=== PATIENT | female | born 1955 | race Caucasian/White ===

== ENCOUNTER → 2017-02-20 | Outpatient (CLI) | payer OTHER | LOC: FIMAGING 14:47 | PROVIDERS: ATTEND Family Medicine | DX: Z13.820 Encounter for screening for osteoporosis (principal); R29.890 Loss of height; E03.9 Hypothyroidism, unspecified; I10 Essential (primary) hypertension; J44.9 Chronic obstructive pulmonary disease, unspecified; Z79.899 Other long term (current) drug therapy ==

== ENCOUNTER → 2017-06-15 | Outpatient (CLI) | payer OTHER | LOC: CIMAGING 14:43 | PROVIDERS: ATTEND Family Medicine | DX: Z12.31 Encounter for screening mammogram for malignant neoplasm of breast (principal) | CPT/HCPCS: G0202 ==

== ENCOUNTER → 2017-07-10 | Outpatient (CLI) | payer OTHER | LOC: CIMAGING 17:53 → EDSTATUS 08-12 11:41 | PROVIDERS: ATTEND Family Medicine | DX: J40 Bronchitis, not specified as acute or chronic (principal) | CPT/HCPCS: 71020-PO ==

== ENCOUNTER → 2018-03-04 | Outpatient (CLI) | payer OTHER ==
[~2018-03-04] MED LIST: IOPAMIDOL (ISOVUE-300) 100 ML BTL ONE
== END ==
LOC: FIMAGING 14:18
PROVIDERS: ATTEND Surgery
DX: K57.32 Diverticulitis of large intestine without perforation or abscess without bleeding (principal); M51.37 Other intervertebral disc degeneration, lumbosacral region
CPT/HCPCS: 74177; Q9967; 82565-PO

== ENCOUNTER 2018-04-01 09:43 | Observation (INO) | payer OTHER ==
--- NOTE | 2018-03-29 14:42 | CPEKG ---
Heart Rate: 74 RR Interval: 811 P-R Interval: 180 QRSD Interval: 76 QT Interval: 368 QTC Interval: 409 P [place]: 19 QRS [place]: 26 T Wave [place]: 48 EKG Severity - NORMAL ECG - EKG Impression: SINUS RHYTHM Electronically Signed By: Yary Silva 29-Mar-2018 17:10:46
[~2018-04-01 09:43] MED LIST changes: -IOPAMIDOL (ISOVUE-300) 100 ML BTL ONE; +cefOXitin SODIUM 2 GM in NS 100 ML IV ONE
[2018-04-01] MEDS ORDERED: BUPIVACAINE/EPI 0.5% 30 ML SDV ONE (09:44)
[2018-04-01] MEDS ORDERED: HYDROGEN PEROXIDE 236 ML BOTTLE TP ONE (09:44)
[2018-04-01] MEDS ORDERED: METHYLENE BLUE 0.5% 50 MG/10 ML AMP ONE (09:44)
[2018-04-01] MEDS ORDERED: LR 1,000 ML IV ONE (10:10)
[2018-04-01] MEDS ORDERED: LIDOCAINE 1% 2 ML INJ ID PRN (10:30)
--- NOTE | 2018-04-01 10:45 | PDANEPAE ---
ANE History of Present Illness 62 year old female w/ PMHx of HTN, CVA (2003; s/p Left CEA), hypothyroidism & GERD presents for EUA / Hemorrhoidectomy. ANE Past Medical History - Cardiovascular History Hx Hypertension: Yes Hx Arrhythmias: No Hx Chest Pain: No Hx Coronary Artery / Peripheral Vascular Disease: No Hx CHF / Valvular Disease: No Hx Palpitations: No Cardiovascular History Comment: L CEA 17 yrs ago - Pulmonary History Hx COPD: Yes Hx Asthma/Reactive Airway Disease: No Hx Recent Upper Respiratory Infection: No Hx Oxygen in Use at Home: No Hx Sleep Apnea: No Sleep Apnea Screening Result - Last Documented: Positive - Neurologic History Hx Cerebrovascular Accident: Yes Hx Seizures: No Hx Dementia: No Neurologic History Comment: CVA 2003 - Endocrine History Hx Diabetes: No Endocrine History Comment: HYPOTHYROID - Renal History Hx Renal Disorders: No - Liver History Hx Hepatic Disorders: No Hepatic History Comment: CHOLECYSTECTOMY - Neurological & Psychiatric Hx Hx Neurological and Psychiatric Disorders: No - Cancer History Hx Cancer: No - Congenital Disorder History Hx Congenital Disorders: No - GI History Hx Gastrointestinal Disorders: Yes Gastrointestinal History Comment: GERD - Other Health History Other Health History: POSS ECZEMA knuckles HANDS. dentures upper and lower - Chronic Pain History Chronic Pain: Yes (severe lower back issues an right knee) - Surgical History Prior Surgeries: R KNEE X2. L KNEE. CEA L. CERVICAL DISC SURG. LUMBAR SPINE X2. HYSTERECTOMY. L FOOT. CHOLECYSTECTOMY. CARPAL TUNNEL L ANE Review of Systems Review of Systems: - Exercise capacity Exercise capacity: <4 METS METS (RN): 3 METS ANE Patient History - Allergies Allergies/Adverse Reactions: morphine [Morphine] Allergy (Severe, Verified 03/26/18 12:56) Other-Enter Comments - Home Medications Home medications: home medication list seen and reviewed Home Medications: Carisoprodol [Soma (*)] 11/05/09 [Last Taken 03/30/18] Levothyroxine [Synthroid 150 mcg (*)] 11/05/09 [Last Taken 04/01/18 06:00] buPROPion XL [Wellbutrin 150mg XL] 11/05/09 [Last Taken 03/31/18 06:00] Omeprazole [Prilosec 20 mg] 05/22/14 [Last Taken 04/01/18 06:00] Atorvastatin Calcium [Lipitor 20 mg (*)] 02/28/15 [Last Taken 03/31/18] Albuterol [Proventil Inhaler HFA (*)] 05/30/16 [Last Taken 3 Days Ago ~03/29/18 ] Cholecalciferol Vit D3 [Vitamin D3 (*)] 05/30/16 [Last Taken 1 Week Ago ~] Herbals/Supplements -Info Only 05/30/16 [Last Taken 1 Week Ago ~03/25/18] Losartan Potassium [Cozaar 50 mg (*)] 05/30/16 [Last Taken 03/31/18] Metoprolol Succinate Xr [Toprol Xl 50 mg (*)] 05/30/16 [Last Taken 03/31/18] Estradiol [Estradiol 1 MG (*)] 06/06/16 [Last Taken 04/01/18 06:00] Hydrochlorothiazide [HCTZ (*)] 03/26/18 [Last Taken 03/31/18] Ipratropium/Albuterol [Duoneb (*)] 03/26/18 [Last Taken 3 Days Ago ~03/29/18] Naproxen Sodium [Aleve] 220 mg PO 04/01/18 [Last Taken 2 Weeks Ago ~03/18/18] - NPO status NPO Status: no food or drink >8 hours NPO Since - Liquids (Date): 04/01/18 NPO Since - Liquids (Time): 07:30 NPO Since - Solids (Date): 03/31/18 NPO Since - Solids (Time): 19:30 - Anes Hx Anes Hx: no prior problems - Smoking Hx Smoking Status: Former smoker Marijuana use: No - Alcohol Use Alcohol Use: None - Family Anes Hx Family Anes Hx: neg - N/A Family Hx Anesthesia Complications: none ANE Labs/Vital Signs - Labs Result Diagrams: 03/29/18 14:14 - Vital Signs Vital Signs: reviewed preoperatively; see RN documention for details Blood Pressure: 141/88 Heart Rate: 101 Respiratory Rate: 16 O2 Sat (%): 89 Height: 162.56 cm Weight: 105.233 kg ANE Physical Exam - Airway Neck exam: FROM Mallampati Score: Class 3 Mouth exam: dentures - Pulmonary Pulmonary: no respiratory distress - Cardiovascular Cardiovascular: regular rate and rhythym - ASA Status ASA Status: III ANE Anesthesia Plan Anesthesia Plan: GA w LMA Total IV Anesthesia: No
--- NOTE | 2018-04-01 11:10 | PDHPUP ---
History & Physical Update H&P update statement: This history and physical update is based on an assessment of the patient which was completed after admission or registration (within 24 hours), but prior to the surgery/procedure. H&P update: H&P reviewed & patient examined, no change in patient's condition since H&P completed
[2018-04-01] MEDS ORDERED: MIDAZOLAM 2 MG/2 ML VIAL IVP ONE (11:11)
[2018-04-01] MEDS ORDERED: PROPOFOL/EMULSION 500 MG/50 ML BOTTLE IV ONE (11:25)
[2018-04-01] MEDS ORDERED: LIDOCAINE 2% 5 ML SDV ONE (11:26)
[2018-04-01] MEDS ORDERED: fentaNYL 100 MCG/2 ML INJ ONE ×5 (11:26→14:59)
[2018-04-01] MEDS ORDERED: ONDANSETRON 4 MG/2 ML VIAL IVP PRN (12:02)
[2018-04-01] MEDS ORDERED: NALOXONE HCL 0.4 MG/ML INJ IVP PRN ×2 (12:02→13:41)
[2018-04-01] MEDS ORDERED: LR 500 ML IV PRN (12:02)
[2018-04-01] MEDS ORDERED: ACETAMINOPHEN 500 MG TAB PO PRN (12:02)
[2018-04-01] MEDS ORDERED: LABETALOL HCL 5 MG/ML 20 ML MDV IVP PRN (12:02)
[2018-04-01] MEDS: fentaNYL 100 MCG/2 ML INJ IVP PRN ×6 (12:45→15:00)
[2018-04-01] MEDS ORDERED: ACETAMINOPHEN 500 MG TAB ONE (13:09)
[2018-04-01] MEDS ORDERED: oxyCODONE IR 5 MG TAB PO PRN (13:40)
[2018-04-01] MEDS ORDERED: ALBUTEROL 3 ML DEYVIAL IH PRN (13:40)
[2018-04-01] MEDS ORDERED: oxyCODONE IR 5 MG TAB ONE (13:43)
[2018-04-01] MEDS ORDERED: ALBUTEROL 3 ML DEYVIAL ONE (13:44)
[2018-04-01] MEDS ORDERED: ACETAMINOPHEN 325 MG TAB PO PRN (14:28)
[2018-04-01] MEDS ORDERED: ONDANSETRON DISINTEGRATING 4 MG TAB PO PRN (14:31)
[2018-04-01] MEDS: oxyCODONE IR 5 MG TAB PO PRN ×2 (16:26→20:42)
[2018-04-01] MEDS: KETOROLAC 15 MG/1 ML SDV IVP SCH (17:45)
[2018-04-01] MEDS: DOCUSATE SODIUM 100 MG CAP PO SCH (20:42)
[2018-04-02] MEDS: oxyCODONE IR 5 MG TAB PO PRN ×3 (00:23→11:27)
[2018-04-02] MEDS: KETOROLAC 15 MG/1 ML SDV IVP SCH ×2 (02:09→07:07)
[2018-04-02] MEDS ORDERED: CARISOPRODOL 350 MG TAB PO PRN (07:37)
[2018-04-02] MEDS ORDERED: ALBUTEROL 60 PUFFS/8 GM MDI IH PRN (07:37)
[2018-04-02] MEDS ORDERED: LEVOTHYROXINE 175 MCG TAB PO SCH (07:45)
[2018-04-02 08:07] VITALS: BP 101/62
[2018-04-02] MEDS: DOCUSATE SODIUM 100 MG CAP PO SCH (08:10)
[2018-04-02] MEDS ORDERED: diphenhydrAMINE 25 MG CAP PO PRN (08:18)
--- NOTE | 2018-04-02 08:18 | SOAPPROG ---
SOAP Progress Note Assessment/Plan: Assessment: 62 y/o F s/p hemorrhoidectomy POD #1 S: Pain well controlled. Biggest complaint is itchiness on neck, back and chest. Has history of morphine allergy, but has had oxycodone in the past without issue. Also has had toradol with no reaction. O: Alert Afebrile RRR No increased WOB Abdomen soft nontender Skin: mild redness on neck, otherwise no rash Plan: Dispo home today. Will order benadryl for itchiness. Continue to keep stools soft with high fiber diet and stool softeners. 04/02/18 08:14 Objective: Vital Signs Temp Pulse Resp BP Pulse Ox 37.1 C 78 16 101/62 93 04/02/18 08:00 04/02/18 08:09 04/02/18 08:00 04/02/18 08:10 04/02/18 08:00 Laboratory Results 03/29/18 14:14 04/01/18 04/02/18 04/03/18 05:59 05:59 05:59 Intake Total 4450 Output Total 500 Balance 3950 ICD10 Worksheet Patient Problems: Problems Problem Status Onset C. difficile diarrhea Acute 06/12/16 Total knee replacement status Acute
[2018-04-02] MEDS ORDERED: LOSARTAN POTASSIUM 50 MG TAB PO SCH (09:00)
[2018-04-02] MEDS ORDERED: ESTRADIOL 1 MG TAB PO SCH (09:00)
[2018-04-02] MEDS ORDERED: HYDROCHLOROTHIAZIDE 25 MG TAB PO SCH (09:00)
[2018-04-02] MEDS ORDERED: NAPROXEN SODIUM 220 MG TAB PO SCH (09:00)
[2018-04-02] MEDS ORDERED: PANTOPRAZOLE SODIUM 40 MG TAB PO SCH (09:00)
[2018-04-02] MEDS ORDERED: buPROPion XL 150 MG TAB PO SCH (09:00)
[2018-04-02] MEDS ORDERED: POLYETHYLENE GLYCOL 3350 17 GM PKT PO SCH (09:00)
[2018-04-02] MEDS ORDERED: METOPROLOL SUCCINATE XR 50 MG TAB PO SCH (09:00)
[2018-04-02] MEDS ORDERED: ATORVASTATIN CALCIUM 20 MG TAB PO SCH (09:00)
[2018-04-02] MEDS ORDERED: CHOLECALCIFEROL VIT D3 1,000 UNITS TAB PO SCH (09:00)
--- NOTE | 2018-04-02 09:17 | POSTANESTH ---
Post Anesthetic Evaluation Cardiovascular Status: Normal, Stable, Similar to Pre-Op Cond Respiratory Status: Similar to Pre-op Cond., Tx Decrease in SpO2 (Patient with known COPD. Does not utilize O2 at home. Initially scheduled to be admitted after surgery, but plans changed after surgery for intended day of surgery discharge home. Unfortunately, patient SpO2 too low for discharge home. Patient had to be admitted overnight.) Level of Consciousness/Mental Status: Can Participate in Eval, Alert and Oriented Pain Control: Adequate, Prn Tx Ordered Nausea/Vomiting Control: Adequate, Prn Tx Ordered Complications Possibly Related to Anesthesia: None Noted
--- NOTE | 2018-04-03 20:41 | GOP ---
[f rep st] OPERATIVE REPORT DATE OF OPERATION: 04/01/2018 SURGEON: Trev Farfan MD ROADS SUPERVISOR: There was no compounding assistant. ANESTHESIOLOGIST: Dr. Hinojosa. PREOPERATIVE DIAGNOSIS: Possible anal fissure and external hemorrhoids. POSTOPERATIVE DIAGNOSIS: Possible anal fissure and external hemorrhoids. PROCEDURE PERFORMED: Exam under anesthesia with external hemorrhoidectomy and lateral internal sphin cterotomy. FINDINGS: The patient was found to have a somewhat chronic anterior anal fissure and she had some sw ollen external hemorrhoids with minimal internal hemorrhoids. DESCRIPTION OF PROCEDURE: The patient was taken to the operating room, where she received a satisfac tory general endotracheal anesthesia by Dr. Hinojosa. She was placed in the lithotomy position, preppe d and draped in usual sterile fashion. Anus was infiltrated after 0.5% Marcaine with epinephrine and dilated gently to 3 fingerbreadths. The above-noted findings of a chronic anterior fissure. Sap Solution Manager Consultant al hemorrhoids were then excised in 3 different areas and closed with 3-0 Vicryl running sutures. At the 3 o'clock position, a lateral internal sphincterotomy was done of the internal sphincter before closing the wound. Hemostasis was assured. The wound was further infiltrated with 0.5% Marcaine. A single layer of internal hemorrhoid banding was completed, and the fissure base was left in place. She tolerated the procedure well. She was taken to recovery room in good condition. There were no c omplications. /[id number]/MODL
== END 2018-04-02 12:07 | disposition home or self-care (01) ==
LOC: FSGY 09:43 → F3E 14:26
PROVIDERS: ADMIT Surgery; ATTEND Surgery
DX: K60.1 Chronic anal fissure (principal); K64.4 Residual hemorrhoidal skin tags
CPT/HCPCS: 46250; 88304; 93005; G0378; J0694; J1885; J2250; J2704; J3010; J7613; Q9968

== ENCOUNTER 2018-04-22 11:33 | Emergency (ER) | payer OTHER ==
[2018-04-22 11:44] VITALS: BP 148/91
[2018-04-22] MEDS ORDERED: traMADol 50 MG TAB PO ONE (11:59)
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
== END 2018-04-22 12:18 | disposition home or self-care (01) ==
LOC: CED 11:33
DX: S06.0X0A Concussion without loss of consciousness, initial encounter (principal); S16.1XXA Strain of muscle, fascia and tendon at neck level, initial encounter; V50.5XXA Driver of pick-up truck or van injured in collision with pedestrian or animal in traffic accident, initial encounter; E03.9 Hypothyroidism, unspecified; I10 Essential (primary) hypertension; J44.9 Chronic obstructive pulmonary disease, unspecified; Z87.891 Personal history of nicotine dependence

== ENCOUNTER → 2018-05-08 | Outpatient (CLI) | payer OTHER | LOC: FIMAGING 10:52 | PROVIDERS: ATTEND Family Medicine | DX: Z13.89 Encounter for screening for other disorder (principal); Z87.39 Personal history of other diseases of the musculoskeletal system and connective tissue ==

== ENCOUNTER → 2018-06-25 | Outpatient (CLI) | payer OTHER ==
[~2018-06-25] MED LIST changes: +IOPAMIDOL (ISOVUE-300) 100 ML BTL ONE; -cefOXitin SODIUM 2 GM in NS 100 ML IV ONE
== END ==
LOC: FIMAGING 15:27
PROVIDERS: ATTEND Surgery
DX: K57.30 Diverticulosis of large intestine without perforation or abscess without bleeding (principal)
CPT/HCPCS: 74177; Q9967

== ENCOUNTER 2018-07-06 06:16 | Inpatient (IN) | payer OTHER ==
--- NOTE | 2018-07-05 12:12 | GHP ---
DATE OF ADMISSION: 07/06/2018 DATE OF SURGERY: 07/06/2018 CHIEF COMPLAINT: Left lower quadrant pain. HISTORY OF PRESENT ILLNESS: The patient is a 62-year-old female who has previously undergone hemorrhoidectomy by Dr. Farfan, who now presents with complaints of recurrent diverticulitis. She has previously been treated with antibiotics. However, she does not want to take antibiotics for diverticulitis because of her history of C difficile infection. Over the last several months, the patient reports that her left lower quadrant pain has become increasingly painful, especially after meals. She denies fever, chills, or other symptomatic concerns. PAST MEDICAL HISTORY: Cerebrovascular accident, COPD, depression, diverticulitis, C difficile infection, GERD, hyperlipidemia, hypertension, hypothyroidism, migraines, psoriatic arthropathy. PAST SURGICAL HISTORY: Right knee arthroscopy, back surgery, carotid endarterectomy, cervical spine surgery, cholecystectomy, elbow surgery, left foot surgery, hemorrhoidectomy, hysterectomy and BSO, knee surgery, shoulder surgery, tonsillectomy. MEDICATION LIST: Aleve 200 mg daily, atorvastatin 20 mg, carisoprodol 350 mg three times daily, estradiol 1 mg oral tablet daily, Excedrin Migraine as needed , hydrochlorothiazide 20 mg daily, Levoxyl 175 mcg daily, losartan 100 mg daily , metoprolol 50 mg extended release daily, omeprazole 20 mg once daily, MiraLAX as needed, ranitidine 150 mg at bedtime, Ventolin HFA 90 mcg per actuation inhaler, Wellbutrin XL 300 mg once daily. ALLERGIES: Aspirin, Effexor XR, morphine, sulindac. FAMILY MEDICAL HISTORY: Uterine cancer, diabetes, hyperlipidemia, hypertension. SOCIAL HISTORY: The patient is a former smoker. REVIEW OF SYSTEMS: A 10-point review of systems is negative, aside from what is documented in the HPI. PHYSICAL EXAMINATION: GENERAL: Well-appearing, well-dressed, 62-year-old female in no acute distress. HEENT: Normocephalic, atraumatic. Pupils are equal and round. No scleral icterus. No gross hearing deficit. Mucous membranes are moist. CARDIAC: Regular rate and rhythm. No clicks, murmurs, or rubs. RESPIRATORY: Clear to auscultation bilaterally. No increased work of breathing. ABDOMEN: Soft, mildly distended, tender to palpation in the left lower quadrant. MUSCULOSKELETAL: Moves all extremities equally. NEUROLOGIC: She is alert and oriented x3. PSYCHIATRIC: She has an appropriate mood and affect. IMPRESSION AND PLAN: This is a patient who has a long history of recurrent diverticulitis, who has chosen to undergo laparoscopic sigmoid colectomy. We have discussed all risks and options. Risks of surgery include, but are not limited to, infection, bleeding, need to convert to open procedure, anastomotic leak, heart attack, and . The patient understands and wishes to proceed. She understands that the risk of not having surgery includes colon perforation or abscess formation. She did have a CT scan approximately one week ago that revealed severe diverticulosis with stable long segment, as well as concentric thickening of the sigmoid colon. It did not show acute diverticulitis, abscess , or perforation. We will proceed with laparoscopic (possible open) sigmoid colectomy. /[id number]/MODL MTDD
[~2018-07-06 06:16] MED LIST changes: -IOPAMIDOL (ISOVUE-300) 100 ML BTL ONE; +cefOXitin SODIUM 2 GM in NS 100 ML IV ONE
[2018-07-06] MEDS ORDERED: LR 1,000 ML IV ONE (06:56)
[2018-07-06] MEDS ORDERED: LIDOCAINE 1% 2 ML INJ ID PRN (06:56)
[2018-07-06] MEDS ORDERED: BUPIVACAINE 0.5% 30 ML SDV ONE (07:00)
[2018-07-06] MEDS ORDERED: ceFAZolin 1 GM/5 ML SYR ONE (07:00)
[2018-07-06] MEDS ORDERED: HEPARIN 1000 UNIT/1 ML MDV ONE (07:00)
[2018-07-06] MEDS ORDERED: fentaNYL 250 MCG/5 ML INJ ONE (07:05)
[2018-07-06] MEDS ORDERED: MIDAZOLAM 2 MG/2 ML VIAL ONE (07:05)
[2018-07-06] MEDS ORDERED: LIDOCAINE 2% 2 ML INJ ONE (07:06)
[2018-07-06] MEDS ORDERED: ROCURONIUM 100 MG/10 ML VIAL ONE (07:06)
[2018-07-06] MEDS ORDERED: PROPOFOL 200 MG/20 ML VIAL ONE (07:06)
[2018-07-06] MEDS ORDERED: ONDANSETRON 4 MG/2 ML VIAL ONE ×3 (07:06→12:15)
[2018-07-06] MEDS ORDERED: DEXAMETHASONE 4 MG/ML VIAL ONE (07:06)
[2018-07-06] MEDS ORDERED: NALOXONE HCL 0.4 MG/ML INJ IVP PRN ×2 (07:18→10:53)
[2018-07-06] MEDS ORDERED: PHENYLEPHRINE HCL 100 MCG/ML SYR IVP PRN (07:18)
[2018-07-06] MEDS ORDERED: MEPERIDINE 25 MG/0.5 ML AMP IVP PRN (07:18)
[2018-07-06] MEDS ORDERED: METOCLOPRAMIDE 10 MG/2 ML VIAL IVP PRN (07:18)
[2018-07-06] MEDS ORDERED: oxyCODONE IR 5 MG TAB PO PRN (07:18)
[2018-07-06] MEDS ORDERED: LR 500 ML IV PRN (07:18)
--- NOTE | 2018-07-06 07:36 | PDANEPAE ---
ANE Past Medical History - Cardiovascular History Hx Hypertension: Yes Hx Arrhythmias: No Hx Chest Pain: No Hx Coronary Artery / Peripheral Vascular Disease: No Hx CHF / Valvular Disease: No Hx Palpitations: No Cardiovascular History Comment: L CEA 17 yrs ago - Pulmonary History Hx COPD: Yes Hx Asthma/Reactive Airway Disease: No Hx Recent Upper Respiratory Infection: No Hx Oxygen in Use at Home: No Hx Sleep Apnea: No Sleep Apnea Screening Result - Last Documented: Positive Pulmonary History Comment: leny triggers - Neurologic History Hx Cerebrovascular Accident: Yes Hx Seizures: No Hx Dementia: No Neurologic History Comment: CVA 2003. No residual numbness or weakness - Endocrine History Hx Diabetes: No Endocrine History Comment: HYPOTHYROID - Renal History Hx Renal Disorders: No - Liver History Hx Hepatic Disorders: No Hepatic History Comment: CHOLECYSTECTOMY - Neurological & Psychiatric Hx Hx Neurological and Psychiatric Disorders: No - Cancer History Hx Cancer: No - Congenital Disorder History Hx Congenital Disorders: No - GI History Hx Gastrointestinal Disorders: Yes Gastrointestinal History Comment: GERD. hx of EUA and hemorrhoidectomy 04/01/18 - Other Health History Other Health History: POSS ECZEMA knuckles HANDS. full dentures. wears reading glasses - Chronic Pain History Chronic Pain: Yes (severe lower back issues an right knee) - Surgical History Prior Surgeries: 04/01/18 EUA and hemorrhoidectomy with Farfan. R KNEE X2. L KNEE. CEA L. CERVICAL DISC SURG. LUMBAR SPINE X2. HYSTERECTOMY. L FOOT. CHOLECYSTECTOMY. CARPAL TUNNEL L ANE Review of Systems Review of Systems: - Exercise capacity METS (RN): 3 METS ANE Patient History - Allergies Allergies/Adverse Reactions: morphine [Morphine] Allergy (Verified 07/05/18 16:48) HIVES, VOMITING, MIGRAINE - Home Medications Home Medications: Carisoprodol [Soma (*)] TID PRN 11/05/09 [Last Taken 07/03/18] buPROPion XL [Wellbutrin 150mg XL] 11/05/09 [Last Taken 07/06/18] Omeprazole [Prilosec 20 mg] 05/22/14 [Last Taken 07/06/18] Atorvastatin Calcium [Lipitor 20 mg (*)] 02/28/15 [Last Taken 07/06/18] Albuterol [Proventil Inhaler HFA (*)] Q6H PRN 05/30/16 [Last Taken 06/04/18] Cholecalciferol Vit D3 [Vitamin D3 (*)] 05/30/16 [Last Taken 06/06/18] Herbals/Supplements -Info Only 05/30/16 [Last Taken 03/31/18] Metoprolol Succinate Xr [Toprol Xl 50 mg (*)] 05/30/16 [Last Taken 07/06/18] Estradiol [Estradiol 1 MG (*)] 06/06/16 [Last Taken 07/06/18] Hydrochlorothiazide [HCTZ (*)] 03/26/18 [Last Taken 07/05/18] Levothyroxine [Synthroid 175 mcg (*)] 04/01/18 [Last Taken 07/06/18] Losartan Potassium 04/01/18 [Last Taken 07/06/18] Naproxen Sodium [Aleve] 04/01/18 [Last Taken 07/05/18] Docusate Sodium [Colace 100 MG (*)] 07/05/18 [Last Taken 07/05/18] Polyethylene Glycol 3350 [Miralax 17 gm (*)] 07/05/18 [Last Taken 07/05/18] traMADol [Ultram 50 mg (*)] 07/05/18 [Last Taken Unknown] - NPO status NPO Since - Liquids (Date): 07/05/18 NPO Since - Liquids (Time): 23:33 NPO Since - Solids (Date): 07/04/18 NPO Since - Solids (Time): 21:00 - Smoking Hx Smoking Status: Former smoker - Family Anes Hx Family Hx Anesthesia Complications: none ANE Labs/Vital Signs - Vital Signs Blood Pressure: 114/64 Heart Rate: 85 Respiratory Rate: 20 O2 Sat (%): 91 Height: 162.56 cm Weight: 103.873 kg ANE Physical Exam - Airway Neck exam: FROM Mallampati Score: Class 2 Mouth exam: dentures - Pulmonary Pulmonary: no respiratory distress, no rales or rhonchi, clear to auscultation - Cardiovascular Cardiovascular: regular rate and rhythym, no murmur, rub, or gallop - ASA Status ASA Status: III ANE Anesthesia Plan Anesthesia Plan: general endotracheal anesthesia
[2018-07-06 07:48] LABS: PLATELET COUNT 220 10^3/uL (150-400)
[2018-07-06] MEDS ORDERED: ePHEDrine SULFATE 25 MG/5 ML SYR ONE ×2 (08:25→09:25)
[2018-07-06] MEDS ORDERED: PHENYLEPHRINE HCL 100 MCG/ML SYR ONE ×3 (08:25→09:25)
[2018-07-06] MEDS ORDERED: SUGAMMADEX SODIUM 200 MG/2 ML VIAL IVP ONE (10:00)
[2018-07-06] MEDS ORDERED: fentaNYL 100 MCG/2 ML INJ ONE ×2 (10:45→11:17)
[2018-07-06] MEDS ORDERED: HYDROmorphONE/DILAUDID 2 MG/ML INJ ONE (10:45)
[2018-07-06] MEDS: HYDROmorphONE/DILAUDID 2 MG/ML INJ IVP PRN ×4 (10:48→11:29)
[2018-07-06] MEDS ORDERED: ONDANSETRON 4 MG/2 ML VIAL IVP PRN (10:52)
[2018-07-06] MEDS: fentaNYL 100 MCG/2 ML INJ IVP PRN ×4 (10:53→11:56)
[2018-07-06] MEDS ORDERED: HYDROmorphONE/DILAUDID 6 MG/30 ML PCA IV PRN (10:53)
--- NOTE | 2018-07-06 10:57 | POSTOPPROG ---
Post Op Note Date of Operation: 07/06/18 Surgeon: Trev Farfan Adjunct Art History Instructor: Josselin Donaldson Anesthesiologist: Esteban Dorsey Anesthesia: GET(General Endotracheal) Pre-op Diagnosis: recurrent diverticulitis Post-op Diagnosis: same Procedure: lap assisted sigmid colectomy c splenic flexure mobilization Findings: thick sigmoid colon c adhesions Inf/Abcess present in the surg proc area at time of surgery?: No EBL: Minimal Complications: none Specimen(s): colon to pathology--initial evaluation so far benign findings
[2018-07-06] MEDS: ONDANSETRON 4 MG/2 ML VIAL IVP PRN ×2 (11:20→12:17)
[2018-07-06] MEDS ORDERED: PROMETHAZINE HCL 25 MG/ML INJ ONE (11:32)
[2018-07-06] MEDS: PROMETHAZINE HCL 25 MG/ML INJ IVP PRN ×2 (11:34→11:56)
--- NOTE | 2018-07-06 12:42 | PDMN ---
Medical Necessity Medical necessity: MCG: S 235 bowel sgy: colectomy partial with our without ostomy by Lap 3 days Lap assist. colectomy with splenic flexure mobilization
[2018-07-06] MEDS: NS 1,000 ML IV SCH ×2 (13:01→19:48)
[2018-07-06] MEDS ORDERED: LORazepam 2 MG/ML INJ IVP PRN (15:51)
[2018-07-06] MEDS ORDERED: CARISOPRODOL 350 MG TAB PO PRN (16:20)
[2018-07-06] MEDS ORDERED: ALBUMIN 5% 500 ML IV ONE ×2 (16:47→18:19)
[2018-07-06] MEDS ORDERED: NORTRIPTYLINE HCL 10 MG CAP PO SCH (21:00)
[2018-07-06] MEDS: DOCUSATE SODIUM 100 MG CAP PO SCH (22:06)
[2018-07-07] MEDS: LEVOTHYROXINE 175 MCG TAB PO SCH (06:39)
[2018-07-07] MEDS ORDERED: FUROSEMIDE 20 MG/2 ML VIAL IVP ONE (06:45)
--- NOTE | 2018-07-07 08:37 | SOAPPROG ---
SOAP Progress Note Assessment/Plan: Assessment/Plan: 62 Y F s/p lap assisted sigmoid colectomy for recurrent diverticulitis, POD#1. Low uop. Doubt active bleeding. H&H ok. Not tachycardic (realize on metoprolol which could suppress this). Received 1L colloids last evening. Low dose lasix this am per Dr. Farfan. Increase IVF rate from 125 to 150. Continue luis for accurate I and O's. Early GORDON. Baseline Cr 1.2. 2.5 today. Probable hypovolemia. Increasing fluids per above. Hold nephrotoxic agents--lovenox changed to heparin. No toradol. Repeat BMP in am. If worse, consider hospitalist consult. Ileus. Improving. Continue clears. Pain. Continue current management c MANAGER PET. Dispo: pending. S: "Sore." Passing a little gas. No nausea. More calm this am. O: alert, nad ctab anteriorly rrr abd soft, inc cdi, +BS 07/07/18 08:38 Objective: Vital Signs Temp Pulse Resp BP Pulse Ox 36.9 C 82 18 106/60 92 07/07/18 08:00 07/07/18 08:00 07/07/18 08:00 07/07/18 08:00 07/07/18 08:00 Laboratory Results 07/07/18 05:03 07/07/18 05:03 07/06/18 07/07/18 07/08/18 05:59 05:59 05:59 Intake Total 2550 Output Total 270 Balance 2280 ICD10 Worksheet Patient Problems: Problems Problem Status Onset C. difficile diarrhea Acute 06/12/16 Total knee replacement status Acute
[2018-07-07] MEDS: buPROPion XL 150 MG TAB PO SCH (08:57)
[2018-07-07] MEDS: DOCUSATE SODIUM 100 MG CAP PO SCH ×2 (08:58→20:42)
[2018-07-07] MEDS: METOPROLOL SUCCINATE XR 50 MG TAB PO SCH (08:58)
[2018-07-07] MEDS: ESTRADIOL 1 MG TAB PO SCH (08:58)
[2018-07-07] MEDS: ATORVASTATIN CALCIUM 20 MG TAB PO SCH (08:58)
[2018-07-07] MEDS: NS 1,000 ML IV SCH (09:00)
--- NOTE | 2018-07-07 09:01 | POSTANESTH ---
Post Anesthetic Evaluation Respiratory Status: Normal, Stable Level of Consciousness/Mental Status: Can Participate in Eval Pain Control: Adequate, Prn Tx Ordered Nausea/Vomiting Control: Adequate, Prn Tx Ordered Complications Possibly Related to Anesthesia: None Noted
[2018-07-07] MEDS ORDERED: diphenhydrAMINE 25 MG CAP PO PRN (09:15)
[2018-07-07] MEDS: HYDROCHLOROTHIAZIDE 25 MG TAB PO SCH (09:16)
[2018-07-07] MEDS: LOSARTAN POTASSIUM 50 MG TAB PO SCH (09:16)
--- NOTE | 2018-07-07 12:33 | GOP ---
DATE OF OPERATION: 07/06/2018 SURGEON: Trev Farfan MD MANUFACTURING BAKER: VIDAL [place]. ANESTHESIOLOGIST: Esteban. PREOPERATIVE DIAGNOSIS: Recurrent diverticulitis. POSTOPERATIVE DIAGNOSIS: Recurrent diverticulitis. PROCEDURE PERFORMED: Laparoscopic low anterior colectomy with splenic flexure mobilization. FINDINGS: This patient was found a markedly thickened, chronically inflamed sigmoid colon down to th e peritoneal reflection. She had some scar tissue from having had a PETER and BSO and visibility it wa s difficult with the amount of adiposity in the omentum. DESCRIPTION OF PROCEDURE: The patient taken to the operating room where she received satisfactory ge neral endotracheal anesthesia by Dr. Orellana . She was placed in the supine position in low stirrups, prepped and draped in the usual sterile fashion. A supraumbilical incision was made. A V eress needle inserted. Pneumoperitoneum was established. Trocar was introduced. Laparoscope introd uced. Good visualization was obtained. Three other trocars were placed in the lower abdomen under d irect vision. The small bowel was freed up from minimal adhesions in the pelvis and retracted cephal ad. The sigmoid colon was exposed. It was quite fixed over the left anterior abdominal wall and the lateral abdominal wall. This was freed up carefully with the Harmonic Scalpel, elevating it up away from the ureter and the iliac vessels. The peritoneum was divided on either side of the colon and d issection extended down to near the pelvic reflection. There was a fair amount of inflammatory palomares e in the very lower part of the sigmoid. This was freed up until the colon could be well-mobilized. Dissection extended up around the ascending colon and the splenic flexure to allow mobilization of t he proximal colon. The mesocolon was divided with hemoclips and Harmonic Scalpel with good visibilit y away from the ureters and vessel. After adequate mobilization was done, the distal colon was divid ed with an Endo-SWETA stapler. A short Pfannenstiel incision was then made and carried down through th e subcutaneous tissue and then through the rectus sheath. The peritoneum was opened in the midline, and the rectus muscles were retracted. Wound protection was used. The colon was brought up through the opening and was then divided proximally with a pursestring device, and the specimen was removed a nd sent to pathology which was eventually returned as benign diverticular disease. A 29 EEA anvil wa s placed in the proximal colon and secured in place with the pursestring suture. The colon was then dropped back down in the abdomen which was temporarily closed with towel clips. Pneumoperitoneum was reestablished. The EEA was brought up through the rectum and up through the rectal stump and was br ought out through the anterior wall of the rectal stump, care to avoid injury to the bladder or vagin a. A spike was brought out. The 2 ends were connected, closed down and then fired. Perfect anastom otic rings were seen. The area was tested under water with air insufflation, and there was no eviden ce of any leakage. Wound was irrigated. Hemostasis was assured. Trocars were removed under direct vision. Trocar sites were closed with 0 Vicryl for the fascia, 4-0 Monocryl subcuticular stitch for the skin. The small Pfannenstiel incision was closed with 0 Vicryl for the peritoneum and a #1 PDS f or the fascia, 3-0 Vicryl for the subcu and a 4-0 Monocryl subcuticular stitch for the skin. All wou nds were infiltrated with 0.5% Marcaine. She tolerated the procedure well and taken to the recovery room in good condition. There were no complications. /[id number]/MODL
[2018-07-07] MEDS ORDERED: PNEUMOCOCCAL 0.5ML VACCINE VIAL (PNEUMOVAX 23) IM ONE (12:40)
--- NOTE | 2018-07-07 15:20 | ASMTCMCOM ---
CM Note CM Note Notes: Pt is a 62 y/o female admitted for a colectomy w/ Dr. Farfan. Pt will most likely d/c independent when medically stable. No therapies ordered at this time. CM available for changes. Plan: Independent Date Signed: 07/07/2018 03:19 PM Electronically Signed By:CHERYL Callahan
[2018-07-07] MEDS: ALBUTEROL 60 PUFFS/8 GM MDI IH PRN (17:37)
[2018-07-08] MEDS: NS 1,000 ML IV SCH ×2 (02:11→14:06)
[2018-07-08] MEDS: LEVOTHYROXINE 175 MCG TAB PO SCH (05:56)
[2018-07-08] MEDS ORDERED: ENOXAPARIN 40 MG/0.4 ML SYR SC SCH (09:00)
[2018-07-08] MEDS: buPROPion XL 150 MG TAB PO SCH (09:45)
[2018-07-08] MEDS: ESTRADIOL 1 MG TAB PO SCH (09:46)
[2018-07-08] MEDS: METOPROLOL SUCCINATE XR 50 MG TAB PO SCH (09:47)
[2018-07-08] MEDS: HYDROCHLOROTHIAZIDE 25 MG TAB PO SCH (09:47)
[2018-07-08] MEDS: ATORVASTATIN CALCIUM 20 MG TAB PO SCH (09:48)
[2018-07-08] MEDS: LOSARTAN POTASSIUM 50 MG TAB PO SCH (09:48)
[2018-07-08] MEDS: PANTOPRAZOLE SODIUM 40 MG TAB PO SCH (09:49)
[2018-07-08] MEDS: DOCUSATE SODIUM 100 MG CAP PO SCH ×2 (09:55→19:54)
[2018-07-08] MEDS: HEPARIN 5,000 UNIT/0.5 ML INJ SC SCH ×3 (10:07→20:53)
--- NOTE | 2018-07-08 10:11 | SOAPPROG ---
SOAP Progress Note Assessment/Plan: Assessment: 62 y/o F s/p lap assisted sigmoid colectomy for diverticulitis POD #2 Oliguria: improving. Cr down to 2.1. Adequate uop over night. US showed no hydronephrosis. S: Having pain. Also having uncontrolled diarrhea. Has hx of C. diff. O: Alert Afebrile VSS RRR No increased WOB Abdomen soft, nondistended, incisions cdi, ttp, +BS : uop much improved- 950cc out overnight. Plan: Continue postop care. Advance to light diet. Test for C. diff. Continue luis for one more day. 07/08/18 10:07 Objective: Vital Signs Temp Pulse Resp BP Pulse Ox 37.3 C 83 20 111/75 98 07/08/18 08:00 07/08/18 08:00 07/08/18 08:00 07/08/18 08:00 07/08/18 08:00 Laboratory Results 07/07/18 05:03 07/08/18 06:45 07/07/18 07/08/18 07/09/18 05:59 05:59 05:59 Intake Total 2550 2070 Output Total 270 950 Balance 2280 1120 ICD10 Worksheet Patient Problems: Problems Problem Status Onset C. difficile diarrhea Acute 06/12/16 Total knee replacement status Acute
[2018-07-08] MEDS: FAMOTIDINE 20 MG TAB PO SCH (20:53)
[2018-07-08] MEDS ORDERED: ACETAMINOPHEN 325 MG TAB PO PRN (23:02)
[2018-07-09] MEDS: LEVOTHYROXINE 175 MCG TAB PO SCH (05:06)
[2018-07-09] MEDS: HEPARIN 5,000 UNIT/0.5 ML INJ SC SCH ×3 (05:06→21:38)
[2018-07-09] MEDS: ESTRADIOL 1 MG TAB PO SCH (11:46)
[2018-07-09] MEDS: LOSARTAN POTASSIUM 50 MG TAB PO SCH (11:47)
[2018-07-09] MEDS: HYDROCHLOROTHIAZIDE 25 MG TAB PO SCH (11:51)
[2018-07-09] MEDS: PANTOPRAZOLE SODIUM 40 MG TAB PO SCH (11:51)
[2018-07-09] MEDS: METOPROLOL SUCCINATE XR 50 MG TAB PO SCH (11:52)
[2018-07-09] MEDS: ATORVASTATIN CALCIUM 20 MG TAB PO SCH (11:52)
[2018-07-09] MEDS: NS 1,000 ML IV SCH (11:53)
[2018-07-09] MEDS: DOCUSATE SODIUM 100 MG CAP PO SCH ×2 (11:54→21:30)
[2018-07-09] MEDS: buPROPion XL 150 MG TAB PO SCH (11:54)
[2018-07-09 12:44] LABS: PLATELET COUNT 184 10^3/uL (150-400)
--- NOTE | 2018-07-09 12:49 | SOAPPROG ---
SOAP Progress Note Assessment/Plan: Assessment: 62 y/o F s/p lap assisted sigmoid colectomy for diverticulitis POD #2 Oliguria: improving. Adequate uop. US showed no hydronephrosis. Diarrhea: negative for C. diff S: Still having abdominal pain, but improved. Had one bout of emesis this am. Hasn't eaten much today. Does not have much of an appetite. Still having diarrhea, but improving O: Alert Afebrile VSS RRR No increased WOB Abdomen soft, nondistended, incisions cdi, ttp, +BS : uop much improved. Garg d/c'ed Plan: Will check labs. Pain likely normal postop pain. Transition to oral pain meds from lacquer polisher. 07/09/18 12:46 Objective: Vital Signs Temp Pulse Resp BP Pulse Ox 37.2 C 74 12 159/67 H 98 07/09/18 11:40 07/09/18 11:40 07/09/18 11:40 07/09/18 11:40 07/09/18 11:40 Laboratory Results 07/09/18 12:37 07/08/18 07/09/18 07/10/18 05:59 05:59 05:59 Intake Total 2070 350 Output Total 950 1450 1000 Balance 1120 -1100 -1000 ICD10 Worksheet Patient Problems: Problems Problem Status Onset C. difficile diarrhea Acute 06/12/16 Total knee replacement status Acute
[2018-07-09] MEDS: HYDROmorphONE/DILAUDID 2 MG TAB PO PRN ×3 (14:06→22:22)
[2018-07-09] MEDS: OXYCODONE/APAP 5/325 TAB PO PRN (17:12)
[2018-07-09] MEDS: FAMOTIDINE 20 MG TAB PO SCH (21:38)
[2018-07-10] MEDS: HYDROmorphONE/DILAUDID 2 MG TAB PO PRN ×4 (05:22→18:33)
[2018-07-10] MEDS: LEVOTHYROXINE 175 MCG TAB PO SCH (05:22)
[2018-07-10] MEDS: HEPARIN 5,000 UNIT/0.5 ML INJ SC SCH ×3 (05:25→20:09)
[2018-07-10] MEDS: HYDROCHLOROTHIAZIDE 25 MG TAB PO SCH (09:40)
[2018-07-10] MEDS: LOSARTAN POTASSIUM 50 MG TAB PO SCH (09:41)
[2018-07-10] MEDS: ESTRADIOL 1 MG TAB PO SCH (09:41)
[2018-07-10] MEDS: ATORVASTATIN CALCIUM 20 MG TAB PO SCH (09:41)
[2018-07-10] MEDS: PANTOPRAZOLE SODIUM 40 MG TAB PO SCH (09:42)
[2018-07-10] MEDS: METOPROLOL SUCCINATE XR 50 MG TAB PO SCH (09:42)
[2018-07-10] MEDS: buPROPion XL 150 MG TAB PO SCH (09:42)
[2018-07-10] MEDS: DOCUSATE SODIUM 100 MG CAP PO SCH ×2 (09:44→19:07)
[2018-07-10] MEDS: ALBUTEROL 60 PUFFS/8 GM MDI IH PRN (09:58)
[2018-07-10] MEDS ORDERED: IPRATROPIUM/ALBUTEROL 3 ML DEYVIAL ONE (10:02)
[2018-07-10] MEDS ORDERED: IPRATROPIUM/ALBUTEROL 3 ML DEYVIAL IH PRN (10:23)
--- NOTE | 2018-07-10 11:50 | SOAPPROG ---
SOPATRICK Progress Note Assessment/Plan: Assessment: 62 y/o F s/p lap assisted sigmoid colectomy for diverticulitis POD #3 UOP much improved Cr normal today Oral pain meds Regular diet home medications Walk S: Still having abdominal pain, but improved. No emesis. Concerned that she hasn't walked since the first day O: Alert Afebrile VSS RRR No increased WOB, CTAB, decreased at bases, on O2 Abdomen soft, nondistended, incisions cdi, some mild ecchymosis. Some erythema ? from tape on lower abdomen +BS Plan: 07/10/18 11:48 Objective: Vital Signs Temp Pulse Resp BP Pulse Ox 37.6 C 75 12 119/56 L 92 07/10/18 11:34 07/10/18 11:34 07/10/18 11:34 07/10/18 11:34 07/10/18 11:34 Laboratory Results 07/09/18 12:37 07/09/18 12:37 07/09/18 07/10/18 07/11/18 05:59 05:59 05:59 Intake Total 350 500 240 Output Total 1450 1000 1200 Balance -1100 -500 -960 ICD10 Worksheet Patient Problems: Problems Problem Status Onset C. difficile diarrhea Acute 06/12/16 Total knee replacement status Acute
--- NOTE | 2018-07-10 15:10 | ASMTCMCOM ---
CM Note CM Note Notes: Per Dr haney, pt has not walked since first day. PT/OT have been ordered. CM to follow. D/C Plan: TBD Date Signed: 07/10/2018 03:10 PM Electronically Signed By:Michelle Tellez
[2018-07-10] MEDS: FAMOTIDINE 20 MG TAB PO SCH (20:09)
[2018-07-10] MEDS: OXYCODONE/APAP 5/325 TAB PO PRN (20:09)
[2018-07-11] MEDS: HYDROmorphONE/DILAUDID 2 MG TAB PO PRN ×6 (00:14→22:37)
[2018-07-11] MEDS: HEPARIN 5,000 UNIT/0.5 ML INJ SC SCH ×3 (05:37→21:09)
[2018-07-11] MEDS: LEVOTHYROXINE 175 MCG TAB PO SCH (05:38)
[2018-07-11] MEDS: LOSARTAN POTASSIUM 50 MG TAB PO SCH (09:26)
[2018-07-11] MEDS: buPROPion XL 150 MG TAB PO SCH (09:29)
[2018-07-11] MEDS: ESTRADIOL 1 MG TAB PO SCH (09:29)
[2018-07-11] MEDS: HYDROCHLOROTHIAZIDE 25 MG TAB PO SCH (09:30)
[2018-07-11] MEDS: METOPROLOL SUCCINATE XR 50 MG TAB PO SCH (09:30)
[2018-07-11] MEDS: PANTOPRAZOLE SODIUM 40 MG TAB PO SCH (09:30)
[2018-07-11] MEDS: ATORVASTATIN CALCIUM 20 MG TAB PO SCH (09:30)
--- NOTE | 2018-07-11 10:51 | SOAPPROG ---
SOAP Progress Note Assessment/Plan: Assessment: 62 y/o F s/p lap assisted sigmoid colectomy for diverticulitis POD #5 UOP much improved Cr normal on 07/09/18 Oral pain meds Regular diet home medications Patient able to get up and walk around. Encourage continued walking and moving. Attempt to wean off O2 - Hope can dc tomorrow S: Still having abdominal pain, but improved. No emesis. Having gas and BM O: Alert Afebrile VSS RRR Some wheezing and coughing upon waking and moving around, lungs are CTAB, decreased at bases, on 1L O2 Abdomen soft, nondistended, incisions cdi, some mild ecchymosis. Positive bowel sounds. Plan: 07/10/18 11:48 07/11/18 10:51 07/11/18 10:52 07/11/18 10:52 07/11/18 11:53 Objective: Vital Signs Temp Pulse Resp BP Pulse Ox 37.1 C 76 16 139/74 H 92 07/11/18 07:33 07/11/18 07:33 07/11/18 07:33 07/11/18 09:26 07/11/18 07:33 Laboratory Results 07/09/18 12:37 07/09/18 12:37 07/10/18 07/11/18 07/12/18 05:59 05:59 05:59 Intake Total 500 540 Output Total 1000 1450 Balance -500 -910 ICD10 Worksheet Patient Problems: Problems Problem Status Onset C. difficile diarrhea Acute 06/12/16 Total knee replacement status Acute
[2018-07-11] MEDS: DOCUSATE SODIUM 100 MG CAP PO SCH ×2 (11:42→21:09)
[2018-07-11] MEDS: FAMOTIDINE 20 MG TAB PO SCH (21:09)
[2018-07-12] MEDS: HYDROmorphONE/DILAUDID 2 MG TAB PO PRN ×4 (05:14→18:06)
[2018-07-12] MEDS: LEVOTHYROXINE 175 MCG TAB PO SCH (05:14)
[2018-07-12] MEDS: HEPARIN 5,000 UNIT/0.5 ML INJ SC SCH ×2 (05:15→13:44)
[2018-07-12] MEDS: buPROPion XL 150 MG TAB PO SCH (08:34)
[2018-07-12] MEDS: HYDROCHLOROTHIAZIDE 25 MG TAB PO SCH (08:34)
[2018-07-12] MEDS: LOSARTAN POTASSIUM 50 MG TAB PO SCH (08:35)
[2018-07-12] MEDS: METOPROLOL SUCCINATE XR 50 MG TAB PO SCH (08:35)
[2018-07-12] MEDS: ATORVASTATIN CALCIUM 20 MG TAB PO SCH (08:35)
[2018-07-12] MEDS: PANTOPRAZOLE SODIUM 40 MG TAB PO SCH (08:36)
[2018-07-12] MEDS: ESTRADIOL 1 MG TAB PO SCH (08:37)
[2018-07-12] MEDS: DOCUSATE SODIUM 100 MG CAP PO SCH (08:59)
--- NOTE | 2018-07-12 13:37 | SOAPPROG ---
SOAP Progress Note Assessment/Plan: Assessment: AFEBRILE/ WOUND OK/ UO GREAT/ STILL NEEDS O2 PATH DIVERTICULITIS VS OK CHEST CLEAR/ COR RR/ ABD SOFT WITH BS Plan:HOME ON O2 07/12/18 13:35 Objective: Vital Signs Temp Pulse Resp BP Pulse Ox 37.3 C 76 18 140/76 H 88 L 07/12/18 08:00 07/12/18 09:31 07/12/18 08:00 07/12/18 08:00 07/12/18 09:31 Laboratory Results 07/09/18 12:37 07/09/18 12:37 07/11/18 07/12/18 07/13/18 05:59 05:59 05:59 Intake Total 540 1294 Output Total 3878 1350 Balance -910 -56 ICD10 Worksheet Patient Problems: Problems Problem Status Onset C. difficile diarrhea Acute 06/12/16 Total knee replacement status Acute
--- NOTE | 2018-07-12 16:05 | PDHOMEO2F ---
Home Oxygen Face to Face Home Orders: I certify that a physician or a nurse practitioner or physician's loan assistant has had a [id number] encounter with this patient on the date of this order due to the diagnosis listed, which relates to the primary reason the patient requires home oxygen. Alternative treatments have been tried, or considered, and deemed ineffective. It is anticipated that supplemental oxygen will result in improvement with treatment. Home oxygen qualifying diagnosis: Postoperative atelectasis SpO2 on room air (%): 86 Frequency of home oxygen needed: continuous Home oxygen liters per minute: 2 Home oxygen delivery device: nasal cannula Concentrator: Yes E-tanks for mobility and back up: Yes If ordering portable O2, is the patient mobile in the home?: Yes I certify that, based on these findings, the home oxygen is medically necessary for this patient for the following length of time. Length of time home oxygen needed: 1 month
--- NOTE | 2018-07-12 16:09 | ASMTLACE ---
LACE Length of stay for Answers: 4-6 days current admission Acuity / Level of Answers: Yes Care: Did the patient have an inpatient admission? Comorbidities - select Answers: Cerebrovascular disease all that apply (CVA, TIA, aneurysms, vasc ular dementia) Chronic pulmonary disease Opioid dependence / Chronic pain Other Notes: HTN; Hypothyroid; GERD # of Emergency department Answers: 1-2 visits in the last 6 months Score: 16 Date Signed: 07/12/2018 04:08 PM Electronically Signed By:CHERYL Callahan
--- NOTE | 2018-07-12 16:11 | ASMTCMCOM ---
CM Note CM Note Notes: CM spoke to DARLIN Cuevas regarding d/c POC. PT is recommending home w/ 24 hr supervision. Pt reports that she will ask her son to stay w/ her tonight. Pt reports that her son cannot take any time off from work. Pt reports that she cannot private duty caregivers for financial reasons. No other needs at this time. CM available for changes. Plan: Independent Date Signed: 07/12/2018 04:10 PM Electronically Signed By:CHERYL Callahan
[2018-07-12 20:45] VITALS: BP 140/73
== END 2018-07-12 20:50 | disposition home or self-care (01) | DRG 331 ==
LOC: F3E 06:16
PROVIDERS: ADMIT Surgery; ATTEND Surgery
PROC: 0DTN4ZZ Resection of Sigmoid Colon, Percutaneous Endoscopic Approach (ICD-10-PCS; principal; 2018-07-06 08:00)
DX: K57.32 Diverticulitis of large intestine without perforation or abscess without bleeding (principal); J44.9 Chronic obstructive pulmonary disease, unspecified; F32.9 Major depressive disorder, single episode, unspecified; K21.9 Gastro-esophageal reflux disease without esophagitis; E78.5 Hyperlipidemia, unspecified; I10 Essential (primary) hypertension; E03.9 Hypothyroidism, unspecified; G43.909 Migraine, unspecified, not intractable, without status migrainosus; L40.59 Other psoriatic arthropathy; G47.33 Obstructive sleep apnea (adult) (pediatric); Z23 Encounter for immunization; Z86.73 Personal history of transient ischemic attack (TIA), and cerebral infarction without residual deficits
CPT/HCPCS: 97116-GP; 97161-GP; 97166-GO; 97530-GP; 97535-GO; G8978-GP-CJ; G8979-GP-CI; G8987-GO-CI; G8988-GO-CI; J0694; J1100; J1170; J1644; J1940; J2060; J2250; J2370; J2405; J2550; J2704; J3010; P9041

== ENCOUNTER 2018-10-28 19:23 | Emergency (ER) | payer OTHER ==
[2018-10-28] MEDS ORDERED: HYDROCOD/APAP 5/325 PREPACK#6 BTL TAKEHOME ONE (19:59)
[2018-10-28] MEDS ORDERED: DOXYCYCLINE 100 MG PREPACK#2 BTL TAKEHOME ONE (19:59)
--- NOTE | 2018-10-28 20:04 | EDPHY ---
H & P Time Seen by Provider: 10/28/18 19:28 HPI/ROS: CHIEF COMPLAINT: Lip swelling, cheek swelling, jaw swelling, headache HISTORY OF PRESENT ILLNESS: 63-year-old female with multiple medical problems presents emergency department reporting that 3 days ago she noticed a pimple in the midline on her lower lip at the vermilion border. She attempted to pop this. She describes it as being very painful and initially expressed only blood with a small amount of purulence. Since that time she has had progressive swelling of her right lower lip with significant tenderness and firmness. Patient also notes swelling and pain onto her right cheek and right submandibular region. She also reports that prior to this her lower gum line on the right was uncomfortable and irritated by her dentures. No fevers or chills. No chest pain or shortness of breath. Patient does report a headache which she thinks is related to her lip pain. Denies a history of cold sores or HSV lesions. REVIEW OF SYSTEMS: A comprehensive 10 system review of systems was reviewed and is otherwise negative aside from elements mentioned in the history of present illness and medical decision making. PAST MEDICAL HISTORY: Hypertension, COPD, multiple surgeries including carotid artery, back surgery. Hypothyroidism. Chronic pain for which she takes Soma. SOCIAL HISTORY: Former smoker. VITAL SIGNS Reviewed by me. Afebrile. 176/86. GENERAL: Well-developed, well-nourished, resting comfortably in no respiratory distress. No drooling. HEENT: Atraumatic. Eyes: No icterus, no injection. Mild swelling over the right cheek without erythema or warmth. Right lower lip: Swollen, very tender , pustular lesion present at the center midline at the vermilion border. Intraoral: Tenderness along the lower gum line on the right. No fullness in the submental space. Posterior pharynx is clear. No drooling. No muffled voice. Moist mucous membranes. Mouth: moist mucous membranes. No erythema or lesions. Neck: Mild tenderness in the right submandibular region without palpable adenopathy. No significant swelling appreciated. No stridor. Neck is supple with no adenopathy. LUNGS: Clear to auscultation bilaterally, no wheezes, rhonchi or rales. CARDIAC: Regular rate and rhythm, no rubs, murmurs or gallops. ABDOMEN: Soft, nontender, nondistended, bowel sounds normal. BACK: No CVA tenderness. EXTREMITIES: No trauma. No edema. Range of motion is normal throughout. NEURO: Alert and oriented, grossly nonfocal. SKIN: Warm and dry, no rash. PSYCHIATRIC: Normal mentation, no agitation. Smoking Status: Former smoker Constitutional: Initial Vital Signs Temperature (C) 36.6 C 10/28/18 19:32 Heart Rate 86 10/28/18 19:32 Respiratory Rate 20 10/28/18 19:32 Blood Pressure 176/86 H 10/28/18 19:32 O2 Sat (%) 96 10/28/18 19:32 O2 Delivery Mode Room Air Allergies/Adverse Reactions: morphine [Morphine] Allergy (Verified 07/05/18 16:48) HIVES, VOMITING, MIGRAINE Home Medications: Medication Instructions Recorded Carisoprodol [Soma (*)] 350 mg PO TID PRN 11/05/09 buPROPion XL [Wellbutrin 150mg XL] 300 mg PO DAILY 11/05/09 Atorvastatin Calcium [Lipitor 20 20 mg PO DAILY 02/28/15 mg (*)] Albuterol [Proventil Inhaler HFA 1 - 2 puffs IH Q4-6PRN PRN 05/30/16 (*)] Metoprolol Succinate Xr [Toprol Xl 50 mg PO DAILY 05/30/16 50 mg (*)] Estradiol [Estradiol 1 MG (*)] 1 mg PO DAILY 06/06/16 Hydrochlorothiazide [HCTZ (*)] 25 mg PO DAILY 03/26/18 Levothyroxine [Synthroid 175 mcg 175 mcg PO DAILY06 04/01/18 (*)] Losartan Potassium 100 mg PO DAILY 04/01/18 Docusate Sodium [Colace 100 MG (*)] 100 mg PO BID PRN 07/05/18 Polyethylene Glycol 3350 [Miralax 17 gm PO DAILY 07/05/18 17 gm (*)] traMADol [Ultram 50 mg (*)] 50 mg PO Q6HRS PRN 07/05/18 Acetaminophen/ASA/Caffeine 1 each PO DAILY PRN 07/06/18 [Excedrin Tablet (*)] Naproxen Sodium [Aleve 220 MG (*)] 440 mg PO DAILY 07/06/18 Omeprazole 20 mg PO DAILY 11/06/18 Ranitidine HCl [Zantac] 150 mg PO HS 07/06/18 HYDROmorphone HCL [Dilaudid 2 mg 2 - 4 mg PO Q4HRS PRN #30 tab 07/12/18 (*)] Amoxicillin/Clavulanate Pot 875 mg PO BID #14 tab 10/28/18 [Augmentin 875 MG TAB (*)] Doxycycline Hyclate [Vibramycin 100 mg PO BID #14 cap 10/28/18 100 MG (*)] Hydrocodone/APAP 5/325 [Elora 1 tab PO Q6H PRN #10 tab 10/28/18 5/325 (RX)] Medical Decision Making ED Course/Re-evaluation: 63-year-old female presenting with infection of her right lower lip which started after she popped a pimple. The lip is quite tender and swollen. She is also reporting swelling and discomfort on the right cheek and underneath the right mandible. Patient will be placed on Augmentin to control in the intraoral spread of the infection or an oral source as she initially reported tenderness along her gum line. She was also placed on doxycycline for MRSA coverage. Infection started with a pustular lesion that the patient popped. I feel no fluctuance of the patient's lip but it certainly is quite tender, indurated, swollen. Patient does not look systemically ill. She has no respiratory difficulties. I do not believe she needs imaging studies at this time. Differential Diagnosis: Differential diagnoses for the patient's symptom complex was considered including but not limited to HSV lesion with infection, cellulitis, abscess, intraoral abscess, odontogenic infection. - Data Points Medications Given: Discontinued Medications Hydrocodone Bitart/Acetaminophen (Elora 5/325mg Prepack#6) 1 btl TAKEHOME EDNOW ONE Stop: 10/28/18 20:00 Last Admin: 10/28/18 20:13 Dose: 1 btl Amoxicillin/Clavulanate Potassium (Augmentin 875mg) 875 mg PO EDNOW ONE PRN Reason: Protocol Stop: 10/28/18 20:06 Last Admin: 10/28/18 20:12 Dose: 875 mg Doxycycline Hyclate (Vibramycin 100 Mg Prepack#2) 1 btl TAKEHOME EDNOW ONE Stop: 10/28/18 20:00 Last Admin: 10/28/18 20:13 Dose: 1 btl Departure - Departure Disposition: Home, Routine, Self-Care Clinical Impression: Blister of lip with infection Qualifiers: Encounter type: initial encounter Qualified Code(s): S00.521A - Blister ( nonthermal) of lip, initial encounter Condition: Good Instructions: Cellulitis (ED), Abscess (ED) Additional Instructions: You been given 2 antibiotics. This should cover both the skin infection as well as infections with organisms which sometimes cause an abscess. Please take these as directed. Augmentin 875 mg by mouth 2 times a day for the next 7 days. Doxycycline 100 mg by mouth 2 times a day for the next 7 days. I suggest that you apply a warm compress onto the lip several times a day for the next 1-2 days to help with discomfort. You may use hydrocodone as needed for severe pain. Please follow up with her primary care physician if you're not improving as expected in the next 2-3 days. Consider not wearing your dentures until your infection is starting to improve. Swish and spit or gargle with salt water might help with the discomfort. Return to the emergency department or follow up with your primary care physician urgently if you develop worsening pain despite the above treatments, if you develop fever, redness onto the face, increased swelling, or other concerns. Referrals: Emmie Ott MD [Primary Care Provider] - As per Instructions Prescriptions: Amoxicillin/Clavulanate Pot [Augmentin 875 MG TAB (*)] 875 mg PO BID #14 tab Doxycycline Hyclate [Vibramycin 100 MG (*)] 100 mg PO BID #14 cap Hydrocodone/APAP 5/325 [Elora 5/325 (RX)] 1 tab PO Q6H PRN #10 tab PRN Reason: Pain
[2018-10-28] MEDS ORDERED: AMOXICILLIN/CLAVULANATE POT 875/125 MG TAB PO ONE (20:05)
[2018-10-28 20:18] VITALS: BP 156/88
== END 2018-10-28 20:16 | disposition home or self-care (01) ==
LOC: CED 19:23
DX: S00.521A Blister (nonthermal) of lip, initial encounter (principal); I10 Essential (primary) hypertension; E03.9 Hypothyroidism, unspecified; Z79.899 Other long term (current) drug therapy
CPT/HCPCS: 99284-ER